=== PATIENT | female | born 1985 | race Caucasian/White ===

== ENCOUNTER 2016-12-15 14:33 | Emergency (ER) | payer OTHER ==
[~2016-12-15] VITALS: Ht 172.7 cm; Wt 165.5 kg
[~2016-12-15 14:33] MED LIST: ALBUTEROL SULF8.5 GM; BENTYL10 MG PO; BENTYL20 MG PO; CELEXA10 MG PO; CIPRO500 MG PO; CLARITIN-D 21 TABLET PO; DILAUDID2 MG PO; FLAGYL500 MG PO; GLUCOPHAGE1000 MG PO; IMURAN50 MG PO; LEVEMIR100 UNIT/2 SC; MEDICAL THC; NORCO 5/3251 TABLET PO; NOVOLOG 10100 UNITS/ SC; PENTASA500 MG PO; PERCOCET 5/31 TABLET PO; PREDNISONE10 MG PO; PREDNISONE20 MG PO; REMICADE10 MG/ML IV; XIFAXAN550 MG PO; ZITHROMAX Z-PA250 MG PO; ZOFRAN ODT4 MG PO; ZOFRAN4 MG PO
[2016-12-15 17:42] LABS: ADD MIUA? YES; BILIRUBIN NEGATIVE; BLOOD SMALL; COLOR YELLOW ((YELLOW)); GLUCOSE (STRIP) NEGATIVE; KETONES NEGATIVE; LEUKOCYTES NEGATIVE; NITRITE NEGATIVE; PROTEIN (STRIP) NEGATIVE; SPECIFIC GRAVITY 1.023 (1.000-1.030); UROBILINOGEN 0.2 MG/DL (0.2-1.0)
[2016-12-15 17:50] LABS: BACTERIA NONE SEEN /HPF; EPITHELIAL CELLS RARE /HPF; MUCUS TRACE /LPF; RED BLOOD CELLS 0-5 /HPF (0-5); UCUL ADDED? NO; WHITE BLOOD CELLS 0-5 /HPF (0-5)
[2016-12-15 18:06] LABS: EOSINOPHIL (%) 1.4 % (0-5); EOSINOPHIL COUNT 0.1 K/uL (0-0.3); HEMATOCRIT 37.5 % (36.0-46.0); IMMATURE GRANULOCYTE (%) 0.3 % (0.0-0.7); INSTRUMENT ABS NEUTROPHIL CT 5.1 K/uL; MCH 26.6 PG (29.0-34.0); MCV 83.1 FL (83-99); MONOCYTE (%) 8.6 % (3-12); MONOCYTE COUNT 0.7 K/uL (0-0.8); NEUTROPHIL (%) 64.1 % (45-76); NEUTROPHIL COUNT 5.1 K/uL (1.8-6.4); PLATELET COUNT 381 K/uL (156-360); RBC DIS.WIDTH-CV 16.8 % (11.8-14.6); RBC DIS.WIDTH-SD 50.9 % (39-53); RED BLOOD COUNT 4.51 M/uL (3.80-5.20); WHITE BLOOD COUNT 7.9 K/uL (4.1-10.2)
[2016-12-15 18:17] LABS: CHLORIDE 109 mEq/L (99-109); POTASSIUM 3.9 mEq/L (3.7-5.4); SODIUM 139 mEq/L (136-147)
[2016-12-15 18:18] LABS: MAGNESIUM 1.9 mg/dL (1.3-2.7)
[2016-12-15 18:19] LABS: GLUCOSE 101 mg/dL (70-99)
[2016-12-15 18:20] LABS: ANION GAP 6 MEQ/L (2-14)
[2016-12-15 18:21] LABS: TOTAL BILIRUBIN 0.5 mg/dL (0.0-1.0)
[2016-12-15 18:23] LABS: ALKALINE PHOSPHATASE 60 IU/L (3-129); GFR ESTIMATE (CALCULATED) > 59 mL/min/
[2016-12-15 18:24] LABS: UREA NITROGEN (BUN) 9 mg/dL (9-23)
[2016-12-15 20:01] VITALS: BP 133/97
== END 2016-12-15 20:40 | disposition home or self-care (01) ==
LOC: EME 14:33
PROVIDERS: Physician Assistant Medical
DX: R10.31 Right lower quadrant pain (principal); K50.90 Crohn's disease, unspecified, without complications; M32.9 Systemic lupus erythematosus, unspecified; Z72.0 Tobacco use
CPT/HCPCS: 74177; 80053; 81003; 83605; 83735; 85025; 87040; 99281; 99285; J2270; J2405; J7040

== ENCOUNTER 2017-05-13 09:42 | Emergency (ER) | payer OTHER ==
[~2017-05-13] VITALS: Ht 172.7 cm; Wt 159.1 kg
[2017-05-13 10:51] LABS: HEMATOCRIT 37.4 % (36.0-46.0); HEMOGLOBIN 11.9 G/DL (11.9-15.5); MCH 25.8 PG (29.0-34.0); MCHC 31.8 G/DL (30.0-36.0); MCV 81.1 FL (83-99); PLATELET COUNT 492 K/uL (156-360); RBC DIS.WIDTH-CV 14.3 % (11.8-14.6); RBC DIS.WIDTH-SD 41.8 % (39-53); RED BLOOD COUNT 4.61 M/uL (3.80-5.20); WHITE BLOOD COUNT 13.5 K/uL (4.1-10.2)
[2017-05-13 11:00] LABS: ALBUMIN 3.9 g/dL (3.2-4.8); CHLORIDE 103 mEq/L (99-109); POTASSIUM 4.3 mEq/L (3.7-5.4); SODIUM 135 mEq/L (136-147)
[2017-05-13 11:02] LABS: GLUCOSE 126 mg/dL (70-99)
[2017-05-13 11:03] LABS: TOTAL PROTEIN 7.8 g/dL (6.4-8.3)
[2017-05-13 11:04] LABS: TOTAL BILIRUBIN 0.3 mg/dL (0.0-1.0)
[2017-05-13 11:06] LABS: ALKALINE PHOSPHATASE 101 IU/L (3-129); CREATININE 0.8 mg/dL (0.6-1.3); GFR ESTIMATE (CALCULATED) > 59 mL/min/
[2017-05-13 11:07] LABS: UREA NITROGEN (BUN) 12 mg/dL (9-23)
[2017-05-13 11:08] LABS: AST (GOT) 16 IU/L (2-34)
[2017-05-13 11:09] LABS: ALT (GPT) 25 IU/L (3-49)
[2017-05-13 11:15] LABS: QUANTITATIVE HCG < 4.0 MIU/ML
[2017-05-13 12:58] LABS: APPEARANCE SL.HAZY ((CLEAR)); BILIRUBIN NEGATIVE; BLOOD NEGATIVE; COLOR YELLOW ((YELLOW)); GLUCOSE (STRIP) NEGATIVE; KETONES NEGATIVE; LEUKOCYTES TRACE; NITRITE NEGATIVE; PROTEIN (STRIP) 30; SPECIFIC GRAVITY 1.031 (1.000-1.030); UROBILINOGEN 0.2 MG/DL (0.2-1.0)
[2017-05-13 13:02] LABS: BACTERIA RARE /HPF; EPITHELIAL CELLS 2+ /HPF; MUCUS 3+ /LPF; UCUL ADDED? NO; WHITE BLOOD CELLS 0-5 /HPF (0-5)
[2017-05-13] MEDS ORDERED: ZOFRAN4 MG PO (14:07)
[2017-05-13] MEDS ORDERED: FLAGYL500 MG PO (14:07)
[2017-05-13] MEDS ORDERED: DELTASONE20 M1 PO (14:07)
[2017-05-13] MEDS ORDERED: PERCOCET 5/31 TABLET PO (14:07)
[2017-05-13 14:45] VITALS: BP 116/63
== END 2017-05-13 14:53 | disposition home or self-care (01) ==
LOC: EME 09:42
DX: K50.90 Crohn's disease, unspecified, without complications (principal); Z72.0 Tobacco use
CPT/HCPCS: 80053; 81003; 84702; 85027; 87493; 87502; J2405; J2930; J3010; J7030

== ENCOUNTER 2017-08-24 22:27 | Emergency (ER) | payer OTHER ==
[~2017-08-24] VITALS: Ht 172.7 cm; Wt 166.7 kg
[~2017-08-24 22:27] MED LIST changes: +DELTASONE20 M1 PO
[2017-08-24 22:47] LABS: HEMATOCRIT 37.3 % (36.0-46.0); HEMOGLOBIN 12.2 G/DL (11.9-15.5); MCHC 32.7 G/DL (30.0-36.0); MCV 79.4 FL (83-99); PLATELET COUNT 405 K/uL (156-360); RBC DIS.WIDTH-CV 14.3 % (11.8-14.6); RBC DIS.WIDTH-SD 40.8 % (39-53); WHITE BLOOD COUNT 10.4 K/uL (4.1-10.2)
[2017-08-24 22:58] LABS: ALBUMIN 3.9 g/dL (3.2-4.8); CHLORIDE 100 mEq/L (99-109); POTASSIUM 4.2 mEq/L (3.7-5.4); SODIUM 136 mEq/L (136-147)
[2017-08-24 23:03] LABS: TOTAL BILIRUBIN 0.3 mg/dL (0.0-1.0)
[2017-08-24 23:04] LABS: ALKALINE PHOSPHATASE 100 IU/L (3-129); GFR ESTIMATE (CALCULATED) > 59 mL/min/
[2017-08-24 23:06] LABS: AST (GOT) 20 IU/L (2-34); UREA NITROGEN (BUN) 14 mg/dL (9-23)
[2017-08-24 23:07] LABS: ALT (GPT) 35 IU/L (3-49)
[2017-08-24 23:08] LABS: LIPASE 47 U/L (1.0-51.0)
[2017-08-24 23:14] LABS: GLUCOSE 498 mg/dL (70-99); QUANTITATIVE HCG < 4.0 MIU/ML
[2017-08-25 00:35] LABS: APPEARANCE CLEAR ((CLEAR)); BILIRUBIN NEGATIVE; BLOOD NEGATIVE; COLOR YELLOW ((YELLOW)); GLUCOSE (STRIP) >=500; KETONES NEGATIVE; LEUKOCYTES NEGATIVE; NITRITE NEGATIVE; PROTEIN (STRIP) NEGATIVE; UCUL ADDED? NO; UROBILINOGEN 0.2 MG/DL (0.2-1.0)
[2017-08-25] MEDS ORDERED: PERCOCET 5/31 TABLET PO (01:17)
[2017-08-25 02:36] VITALS: BP 111/82
[2017-08-26] MEDS ORDERED: PREDNISONE20 MG PO (22:21)
== END 2017-08-25 02:37 | disposition home or self-care (01) ==
LOC: EME 22:27
PROVIDERS: Emergency Medicine
DX: K50.90 Crohn's disease, unspecified, without complications (principal); R73.9 Hyperglycemia, unspecified; R91.8 Other nonspecific abnormal finding of lung field; N83.202 Unspecified ovarian cyst, left side; M32.9 Systemic lupus erythematosus, unspecified; G43.909 Migraine, unspecified, not intractable, without status migrainosus; F17.200 Nicotine dependence, unspecified, uncomplicated; F32.9 Major depressive disorder, single episode, unspecified; Z88.8 Allergy status to other drugs, medicaments and biological substances
CPT/HCPCS: 74176; 80053; 81003; 82948; 83690; 84702; 85027; 99281; 99285; J2550

== ENCOUNTER 2017-08-26 19:52 | Emergency (ER) | payer OTHER ==
[~2017-08-26] VITALS: Ht 172.7 cm; Wt 166.2 kg
[2017-08-26 21:28] LABS: HEMOGLOBIN 12.6 G/DL (11.9-15.5); MCH 25.7 PG (29.0-34.0); MCHC 32.3 G/DL (30.0-36.0); MCV 79.6 FL (83-99); PLATELET COUNT 362 K/uL (156-360); RBC DIS.WIDTH-CV 14.5 % (11.8-14.6); RBC DIS.WIDTH-SD 41.8 % (39-53); WHITE BLOOD COUNT 9.9 K/uL (4.1-10.2)
[2017-08-26 21:41] VITALS: BP 142/87
[2017-08-26 21:47] LABS: ALBUMIN 3.8 g/dL (3.2-4.8)
[2017-08-26 21:48] LABS: CHLORIDE 100 mEq/L (99-109); POTASSIUM 4.5 mEq/L (3.7-5.4); SODIUM 135 mEq/L (136-147)
[2017-08-26 21:50] LABS: TOTAL PROTEIN 7.5 g/dL (6.4-8.3); TROP-I INTERPRETATION NEGATIVE; TROPONIN-I < 0.01 ng/mL (0.0-0.30)
[2017-08-26 21:52] LABS: TOTAL BILIRUBIN 0.3 mg/dL (0.0-1.0)
[2017-08-26 21:53] LABS: ALKALINE PHOSPHATASE 92 IU/L (3-129)
[2017-08-26 21:54] LABS: CREATININE 0.9 mg/dL (0.6-1.3); GFR ESTIMATE (CALCULATED) > 59 mL/min/
[2017-08-26 21:55] LABS: AST (GOT) 17 IU/L (2-34); UREA NITROGEN (BUN) 15 mg/dL (9-23)
[2017-08-26 21:56] LABS: ALT (GPT) 33 IU/L (3-49)
[2017-08-26 22:00] LABS: GLUCOSE 405 mg/dL (70-99)
[2017-08-26 22:02] LABS: QUANTITATIVE HCG < 4.0 MIU/ML
[2017-08-26] MEDS ORDERED: PREDNISONE20 MG PO (22:21)
== END 2017-08-26 22:25 | disposition home or self-care (01) ==
LOC: EME 19:52
PROVIDERS: Emergency Medicine Emergency Medical Services
DX: K50.90 Crohn's disease, unspecified, without complications (principal); E86.0 Dehydration; M32.9 Systemic lupus erythematosus, unspecified; F32.9 Major depressive disorder, single episode, unspecified; Z72.0 Tobacco use; Z90.49 Acquired absence of other specified parts of digestive tract; Z88.8 Allergy status to other drugs, medicaments and biological substances
CPT/HCPCS: 71045; 80053; 84484; 84702; 85027; 99281; 99285; J0780; J3010; J7040

== ENCOUNTER 2017-12-05 16:36 | Emergency (ER) | payer OTHER ==
[~2017-12-05] VITALS: Ht 172.7 cm; Wt 166.2 kg
[2017-12-05 17:14] LABS: APPEARANCE CLEAR ((CLEAR)); BILIRUBIN NEGATIVE; BLOOD NEGATIVE; COLOR YELLOW ((YELLOW)); GLUCOSE (STRIP) NEGATIVE; KETONES NEGATIVE; LEUKOCYTES NEGATIVE; NITRITE NEGATIVE; PROTEIN (STRIP) NEGATIVE; SPECIFIC GRAVITY 1.023 (1.000-1.030); UCUL ADDED? NO; UROBILINOGEN 0.2 MG/DL (0.2-1.0)
[2017-12-05 17:38] LABS: HEMATOCRIT 38.5 % (36.0-46.0); HEMOGLOBIN 12.6 G/DL (11.9-15.5); MCH 26.4 PG (29.0-34.0); MCHC 32.7 G/DL (30.0-36.0); MCV 80.5 FL (83-99); PLATELET COUNT 380 K/uL (156-360); RBC DIS.WIDTH-CV 14.5 % (11.8-14.6); RBC DIS.WIDTH-SD 42.2 % (39-53); RED BLOOD COUNT 4.78 M/uL (3.80-5.20); WHITE BLOOD COUNT 9.5 K/uL (4.1-10.2)
[2017-12-05 17:48] LABS: CHLORIDE 105 mEq/L (99-109); POTASSIUM 4.1 mEq/L (3.7-5.4); SODIUM 139 mEq/L (136-147)
[2017-12-05 17:50] LABS: GLUCOSE 140 mg/dL (70-99); TOTAL PROTEIN 7.8 g/dL (6.4-8.3)
[2017-12-05 17:52] LABS: TOTAL BILIRUBIN 0.4 mg/dL (0.0-1.0)
[2017-12-05 17:54] LABS: ALKALINE PHOSPHATASE 74 IU/L (3-129); CREATININE 0.8 mg/dL (0.6-1.3); GFR ESTIMATE (CALCULATED) > 59 mL/min/
[2017-12-05 17:55] LABS: UREA NITROGEN (BUN) 12 mg/dL (9-23)
[2017-12-05 17:56] LABS: AST (GOT) 33 IU/L (2-34)
[2017-12-05 17:57] LABS: ALT (GPT) 45 IU/L (3-49); LIPASE 29 U/L (1.0-51.0)
[2017-12-05 18:05] LABS: QUANTITATIVE HCG < 4.0 MIU/ML
[2017-12-05] MEDS ORDERED: PERCOCET 5/31 TABLET PO (20:37)
[2017-12-05] MEDS ORDERED: ZOFRAN ODT4 MG PO (20:37)
[2017-12-05 21:05] VITALS: BP 121/78
== END 2017-12-05 21:12 | disposition home or self-care (01) ==
LOC: EME 16:36
DX: R10.9 Unspecified abdominal pain (principal); E86.0 Dehydration; R11.0 Nausea; R19.7 Diarrhea, unspecified; R79.89 Other specified abnormal findings of blood chemistry; R53.83 Other fatigue; K76.0 Fatty (change of) liver, not elsewhere classified; R91.8 Other nonspecific abnormal finding of lung field; Z97.5 Presence of (intrauterine) contraceptive device; F17.200 Nicotine dependence, unspecified, uncomplicated
CPT/HCPCS: 74177; 80053; 81003; 83690; 84702; 85027; J2270; J2405; J7030

== ENCOUNTER 2017-12-10 10:45 | Emergency (ER) | payer OTHER ==
[~2017-12-10] VITALS: Ht 172.7 cm; Wt 167.6 kg
[2017-12-10 11:26] LABS: HEMATOCRIT 38.4 % (36.0-46.0); HEMOGLOBIN 12.4 G/DL (11.9-15.5); MCH 26.2 PG (29.0-34.0); MCHC 32.3 G/DL (30.0-36.0); PLATELET COUNT 329 K/uL (156-360); RBC DIS.WIDTH-CV 14.3 % (11.8-14.6); RBC DIS.WIDTH-SD 41.8 % (39-53); RED BLOOD COUNT 4.74 M/uL (3.80-5.20); WHITE BLOOD COUNT 9.4 K/uL (4.1-10.2)
[2017-12-10 11:30] LABS: ALBUMIN 4.1 g/dL (3.2-4.8); CHLORIDE 103 mEq/L (99-109); SODIUM 136 mEq/L (136-147)
[2017-12-10 11:32] LABS: GLUCOSE 196 mg/dL (70-99)
[2017-12-10 11:33] LABS: TOTAL PROTEIN 7.9 g/dL (6.4-8.3)
[2017-12-10 11:34] LABS: TOTAL BILIRUBIN 0.4 mg/dL (0.0-1.0)
[2017-12-10 11:36] LABS: ALKALINE PHOSPHATASE 71 IU/L (3-129); CREATININE 0.7 mg/dL (0.6-1.3); GFR ESTIMATE (CALCULATED) > 59 mL/min/
[2017-12-10 11:37] LABS: UREA NITROGEN (BUN) 12 mg/dL (9-23)
[2017-12-10 11:38] LABS: AST (GOT) 22 IU/L (2-34)
[2017-12-10 11:39] LABS: ALT (GPT) 35 IU/L (3-49); LIPASE 17 U/L (1.0-51.0)
[2017-12-10] MEDS ORDERED: PERCOCET 5/31 TABLET PO (13:32)
[2017-12-10] MEDS ORDERED: ZOFRAN4 MG PO (13:32)
[2017-12-10 14:04] VITALS: BP 97/74
== END 2017-12-10 14:11 | disposition home or self-care (01) ==
LOC: EME 10:45
DX: R10.9 Unspecified abdominal pain (principal); R19.7 Diarrhea, unspecified; R11.2 Nausea with vomiting, unspecified; K50.90 Crohn's disease, unspecified, without complications; Z88.9 Allergy status to unspecified drugs, medicaments and biological substances; Z72.0 Tobacco use
CPT/HCPCS: 80053; 81003; 83690; 85027; 99281; 99285; J2270; J2405; J7030